=== PATIENT | female | born 1950 | race Caucasian/White ===

== ENCOUNTER → 2021-04-24 | Outpatient (CLI) | payer MEDICARE ==
[2021-04-24 16:01] LABS: BASOPHILS % (AUTO) 1 % (0-10); CALCIUM 8.2 MG/DL (8.5-10.1); CREATININE SERUM 0.52 MG/DL (0.60-1.30); EOSINOPHILS # (AUTO) 1.3 10^3/uL (0.0-0.3); EOSINOPHILS % (AUTO) 14 % (0-10); HEMATOCRIT 30 % (35-52); HEMOGLOBIN 9.4 g/dL (11.5-16.0); LYMPHOCYTES # (AUTO) 4.1 X 10^3 (1.0-4.0); LYMPHOCYTES % (AUTO) 43 % (12-44); MEAN CORPUSCULAR HEMOGLOBIN 33 pg (25-34); MEAN CORPUSCULAR HGB CONC 32 g/dL (32-36); MEAN CORPUSCULAR VOLUME 103 fL (80-99); MEAN PLATELET VOLUME 8.6 fL (9.0-12.2); MONOCYTES # (AUTO) 0.6 X 10^3 (0.0-1.0); MONOCYTES % (AUTO) 7 % (0-12); NEUTROPHILS # (AUTO) 3.4 X 10^3 (1.8-7.8); NEUTROPHILS % (AUTO) 36 % (42-75); PLATELET COUNT 236 10^3/uL (130-400); WHITE BLOOD COUNT 9.4 10^3/uL (4.3-11.0)
[2021-04-24 16:02] LABS: BASOPHILS # (AUTO) 0.1 10^3/uL (0.0-0.1)
== END ==
LOC: IHC 14:42
PROVIDERS: ATTEND Family Medicine
DX: J96.11 Chronic respiratory failure with hypoxia (principal); J18.9 Pneumonia, unspecified organism
CPT/HCPCS: 80048; 85025